=== PATIENT | female | born 1975 | race Caucasian/White ===

== ENCOUNTER 2017-11-19 14:18 | Emergency (ER) | payer MEDICAID ==
[2017-11-19 14:36] VITALS: BP 125/81; PULSE 66; RESP 16; TEMP 98.8; O2SAT 97
--- NOTE | 2017-11-19 14:48 | EDPHY ---
H & P Time Seen by Provider: 11/19/17 14:36 HPI/ROS: This patient complains of a right thigh injury sustained at home yesterday when she was bleeding her hoarse and a horse kicked her in the right thigh. She complains of swelling ecchymosis and 7/10 pain. She still able ambulate without difficulty but complains of the ongoing pain and swelling. She also reports slight nausea that she thinks is secondary to the pain. She has been taking ibuprofen with mild improvement and notes no other exacerbating factors. She drove herself here by private vehicle for evaluation of her symptoms. ROS: Neuro: No numbness or tingling. Musculoskeletal: No knee injury, hip injury or other injuries from the incident. She did not fall to the ground when the incident occurred. Pulmonary: No shortness of breath Cardiovascular: No heart palpitations or lightheadedness. GI: Mild nausea but no vomiting. Still tolerating good p.o. intake. No abdominal pain. Integumentary: No lacerations or abrasions. 7 point ROS is otherwise negative. Past Medical/Surgical History: Otherwise healthy Social History: She works as an pipe fitter soft copper. Smoking Status: Never smoked Physical Exam: Physical Exam Vital signs are normal. General: No acute distress HEENT: Atraumatic. Eyes: Pupils equal and react to light. Extraocular motions are intact. Lungs: No respiratory distress. Cardiac: Brisk capillary refill is intact throughout. Pulses are 2+ and symmetric in the affected extremity. Skin: No rash or pallor. Extremities: Atraumatic normal except for right side Right thigh: Patient has a hand size hematoma to the lateral mid thigh with associated ecchymosis mild swelling and tenderness. She has no knee injury no warmth to touch no erythema no associated hip tenderness or pain. She can ambulate without difficulty. No generalized discoloration to the rest of her right lower extremity. Neuro: Alert with no sensorimotor deficits in the affected extremity. Initial differential diagnosis: Contusion, traumatic hematoma, doubt DVT or fracture Constitutional: Initial Vital Signs Temperature (C) 37.1 C 11/19/17 14:33 Heart Rate 66 11/19/17 14:33 Respiratory Rate 16 11/19/17 14:33 Blood Pressure 125/81 H 11/19/17 14:33 O2 Sat (%) 97 11/19/17 14:33 O2 Delivery Mode Room Air Allergies/Adverse Reactions: morphine Allergy (Intermediate, Verified 11/19/17 14:36) Itching Home Medications: Medication Instructions Recorded NK [No Known Home Meds] 11/19/17 MDM/Departure - [facility] ED Course/Re-evaluation: Clinical findings are consistent with a thigh hematoma. I counseled patient regarding this. She does not have clinical evidence of anemia, DVT or bony fracture. I counseled her in some detail regarding care of hematoma. We placed her in an Davey wrap will plan to have her continue with Davey wrap and ice. Encouraged her to use Tylenol primarily for the pain. She declined opiate analgesics. She will use ibuprofen in addition if needed. She understands need to return emergency department should she develop significant lightheadedness, worsening pain despite the treatment plan or other concerns. - Depart Disposition: Home, Routine, Self-Care Clinical Impression: Thigh hematoma Qualifiers: Encounter type: initial encounter Laterality: right Qualified Code(s): S70.11XA - Contusion of right thigh, initial encounter Condition: Good Instructions: Hematoma (ED) Additional Instructions: Diagnosis: Right thigh hematoma Plan: Prop up your leg whenever possible over the next few days and limit your activity Use Davey wrap whenever your up and about Avoid any prolonged heat to the injury as this can cause calcification of the hematoma Ice at a minimum 20 min 3 times a day but more is better until hematoma resolved. Tylenol primarily for pain. Ibuprofen in addition if needed. Return for any significant worsening despite the treatment plan. This will typically take 10-14 days to resolve. Referrals: Mariely Norton MD [Primary Care Provider] - As per Instructions
== END 2017-11-19 15:00 | disposition home or self-care (01) ==
LOC: CED 14:18
DX: S70.11XA Contusion of right thigh, initial encounter (principal); W55.12XA Struck by horse, initial encounter; Y92.009 Unspecified place in unspecified non-institutional (private) residence as the place of occurrence of the external cause